=== PATIENT | female | born 1955 | race Caucasian/White ===

== ENCOUNTER 2020-11-28 16:06 | Emergency (ER) | payer MEDICARE ==
[~2020-11-28] VITALS: Ht 167.6 cm; Wt 63.5 kg
[2020-11-28] MEDS ORDERED: CEPHALEXIN500 MG PO (17:51)
[2020-11-28] MEDS ORDERED: AMOXICILLIN/CLAVULANATE K 875 MG TAB PO STA (17:55)
[2020-11-28] MEDS ORDERED: ULTRAM 50MG50 MG PO ×2 (17:55→18:39)
== END 2020-11-28 18:13 | disposition home or self-care (01) ==
LOC: FSED 17:40
DX: S61.215A Laceration without foreign body of left ring finger without damage to nail, initial encounter (principal); W45.8XXA Other foreign body or object entering through skin, initial encounter; Y92.008 Other place in unspecified non-institutional (private) residence as the place of occurrence of the external cause
CPT/HCPCS: 99283